=== PATIENT | female | born 1965 | race Hispanic/Latino ===

== ENCOUNTER → 2020-01-24 | Outpatient (CLI) | payer OTHER | END | disposition home or self-care (01) | LOC: OIH 10:34 | PROVIDERS: ATTEND Nurse Practitioner Adult Health | DX: Z13.6 Encounter for screening for cardiovascular disorders (principal) | CPT/HCPCS: 75571 ==

== ENCOUNTER 2022-12-10 13:26 | Observation (INO) | payer BC, OTHER ==
[~2022-12-10] VITALS: Ht 157.5 cm; Wt 95.9 kg
[2022-12-10 14:01] LABS: BASOPHILS # (AUTO) 0.07 K/uL (0.00-0.20); BASOPHILS % (AUTO) 0.8 % (0.0-5.0); EOSINOPHILS # (AUTO) 0.33 K/uL (0.00-0.70); HEMATOCRIT 40.2 % (36-48); IMMATURE GRANULOCYTE ABSOLUTE 0.03 K/uL (0-1); LYMPHOCYTES # (AUTO) 2.1 K/uL (1.0-4.8); LYMPHOCYTES % (AUTO) 25.1 % (21.0-51.0); MEAN CORPUSCULAR HEMOGLOBIN 30.5 pg (27.0-33.0); MEAN CORPUSCULAR HGB CONC 34.3 g/dL (32.0-36.0); MEAN CORPUSCULAR VOLUME 88.9 fL (79-99); MONOCYTES # (AUTO) 0.5 K/uL (0.1-1.0); MONOCYTES % (AUTO) 6.5 % (3.0-13.0); NEUTROPHILS # (AUTO) 5.2 K/uL (1.8-7.7); NEUTROPHILS % (AUTO) 63.2 % (40.0-77.0); PLATELET COUNT (AUTO) 312 K/uL (130-400); RED BLOOD CELL COUNT(AUTO) 4.52 MIL/uL (4.00-5.50); RED CELL DISTRIBUTION WIDTH 12.8 % (11.0-15.5); WHITE BLOOD COUNT (AUTO) 8.3 K/uL (4.8-10.8)
[2022-12-10 14:09] LABS: CREATININE 0.8 mg/dL (0.5-1.5); POTASSIUM 3.9 mmol/L (3.5-5.1)
[2022-12-10 14:12] LABS: INR < 0.93 (0.85-1.15); PROTHROMBIN TIME 10.8 SEC (9.6-11.6)
[2022-12-10 14:14] LABS: PARTIAL THROMBOPLASTIN TIME 27.6 SEC (26.3-35.5)
[2022-12-10 14:15] LABS: ALBUMIN 3.3 g/dL (3.5-5.0); BILIRUBIN,TOTAL 0.4 mg/dL (0.2-1.0); TOTAL PROTEIN, SERUM 7.7 g/dL (6.0-8.3)
[2022-12-10] MEDS ORDERED: KCL 20 MEQ ERTAB PO PRN (15:30)
[2022-12-10] MEDS ORDERED: HYDROCODONE/ACETAMINOPHEN 5/325 MG TAB PO PRN ×2 (15:30)
[2022-12-10] MEDS ORDERED: NITROGLYCERIN 0.4 MG SL TAB SL PRN (15:30)
[2022-12-10] MEDS ORDERED: POTASSIUM CHLORIDE 20MEQ/100ML 100 ML IV PRN (15:30)
[2022-12-10] MEDS ORDERED: LACTULOSE 20 GM/30 ML UDCUP PO PRN (15:30)
[2022-12-10] MEDS ORDERED: MAG/ALUM/SIMETH 30 ML UDCUP PO PRN (15:30)
[2022-12-10] MEDS ORDERED: GUAIFENESIN-DM 200/20 MG 10 ML PO PRN (15:30)
[2022-12-10] MEDS ORDERED: DiphenhydrAMINE HCL 50 MG/ML VIAL IV PRN (15:30)
[2022-12-10] MEDS ORDERED: HYDROMORPHONE 1 MG INJ IV PRN (15:30)
[2022-12-10] MEDS ORDERED: MAGNESIUM 2GM PREMIX 50ML 50 ML IV PRN (15:30)
[2022-12-10] MEDS ORDERED: ONDANSETRON 4MG INJ IV PRN (15:30)
[2022-12-10] MEDS ORDERED: POTASSIUM CHLORIDE 10% ELIXIR 20 MEQ/15 ML UDCUP PO PRN (15:30)
[2022-12-10] MEDS ORDERED: DIPHENHYDRAMINE HCL 25 MG CAPSULE PO PRN (15:30)
[2022-12-10] MEDS ORDERED: ACETAMINOPHEN 325 MG TAB PO PRN ×2 (15:30)
[2022-12-10] MEDS: ATORVASTATIN 40 MG TABLET PO SCH ×2 (16:25→19:26)
[2022-12-10] MEDS: ASPIRIN 81 MG EC TAB PO SCH (16:25)
[2022-12-10] MEDS: CLOPIDOGREL 75MG TAB PO SCH (16:25)
[2022-12-10] MEDS ORDERED: GADOTERATE MEGLUMINE 10 MMOL/20 ML VIAL IV ONE (16:30)
[2022-12-10] MEDS: 0.9%NACL 1000ML 1,000 ML IV SCH ×2 (18:32→23:50)
[2022-12-10] MEDS ORDERED: FAMOTIDINE 20MG TAB ONE (19:25)
[2022-12-10] MEDS: FAMOTIDINE 20MG VIAL IV SCH (19:26)
[2022-12-10] MEDS: FAMOTIDINE 20MG TAB PO SCH (19:26)
[2022-12-10 23:32] VITALS: O2SAT 97
[2022-12-10 23:45] VITALS: BP 116/70; PULSE 69; RESP 18
[2022-12-11] MEDS ORDERED: LISI10TA24 PO (00:24)
[2022-12-11] MEDS ORDERED: METF-910 PO (00:24)
[2022-12-11] MEDS ORDERED: SEMA1PEN3 SQ (00:24)
[2022-12-11 04:12] VITALS: BP 118/62; PULSE 79; RESP 18
[2022-12-11 05:14] LABS: BASOPHILS # (AUTO) 0.08 K/uL (0.00-0.20); EOSINOPHILS # (AUTO) 0.42 K/uL (0.00-0.70); EOSINOPHILS % (AUTO) 5.5 % (0.0-8.0); HEMATOCRIT 38.9 % (36-48); IMMATURE GRANULOCYTE ABSOLUTE 0.02 K/uL (0-1); LYMPHOCYTES # (AUTO) 1.9 K/uL (1.0-4.8); LYMPHOCYTES % (AUTO) 25.4 % (21.0-51.0); MEAN CORPUSCULAR HEMOGLOBIN 30.6 pg (27.0-33.0); MEAN CORPUSCULAR HGB CONC 34.2 g/dL (32.0-36.0); MEAN CORPUSCULAR VOLUME 89.4 fL (79-99); MONOCYTES # (AUTO) 0.6 K/uL (0.1-1.0); MONOCYTES % (AUTO) 8.4 % (3.0-13.0); NEUTROPHILS # (AUTO) 4.5 K/uL (1.8-7.7); NEUTROPHILS % (AUTO) 59.4 % (40.0-77.0); PLATELET COUNT (AUTO) 292 K/uL (130-400); RED BLOOD CELL COUNT(AUTO) 4.35 MIL/uL (4.00-5.50); RED CELL DISTRIBUTION WIDTH 12.8 % (11.0-15.5); WHITE BLOOD COUNT (AUTO) 7.6 K/uL (4.8-10.8)
[2022-12-11 05:26] LABS: INR < 0.93 (0.85-1.15); PROTHROMBIN TIME 10.7 SEC (9.6-11.6)
[2022-12-11 05:27] LABS: PARTIAL THROMBOPLASTIN TIME 27.4 SEC (26.3-35.5)
[2022-12-11 05:34] LABS: ALBUMIN 2.9 g/dL (3.5-5.0); BILIRUBIN,TOTAL 0.3 mg/dL (0.2-1.0); CREATININE 0.8 mg/dL (0.5-1.5); MAGNESIUM 1.9 mg/dL (1.80-2.40); PHOSPHORUS 4.6 mg/dL (2.5-4.9); POTASSIUM 3.7 mmol/L (3.5-5.1); THYROID STIMULATING HORMONE 2.65 uIU/mL (0.36-3.74); TOTAL PROTEIN, SERUM 6.9 g/dL (6.0-8.3)
[2022-12-11] MEDS: FAMOTIDINE 20MG VIAL IV SCH (07:53)
[2022-12-11 08:00] VITALS: BP 132/72; PULSE 82; RESP 18
[2022-12-11] MEDS ORDERED: BENZOCAINE/MENTH/CETYLPYRD CL 1 EACH LOZENGE MM PRN (08:30)
[2022-12-11 08:59] LABS: SARS-CoV-2, RNA, NAAT NEGATIVE SARS CoV-2 (NEGATIVE)
[2022-12-11] MEDS ORDERED: ENOXAPARIN SODIUM 30 MG/0.3 ML SQ SCH (09:00)
[2022-12-11] MEDS: FAMOTIDINE 20MG TAB PO SCH (09:57)
[2022-12-11] MEDS: ASPIRIN 81 MG EC TAB PO SCH (09:57)
[2022-12-11] MEDS: CLOPIDOGREL 75MG TAB PO SCH (09:57)
[2022-12-11] MEDS ORDERED: AEC81 PO (10:12)
[2022-12-11] MEDS ORDERED: ATOR40TA69 PO (10:12)
[2022-12-11] MEDS ORDERED: CLOP-31 PO (10:12)
[2022-12-11 11:51] VITALS: BP 124/76; PULSE 78; RESP 18
== END 2022-12-11 14:00 | disposition home or self-care (01) ==
LOC: EDH 13:26 → EDHIP 15:27 → INTOOBSV 15:27 → 3DH 23:36
PROVIDERS: ADMIT Internal Medicine; ATTEND Internal Medicine
DX: G45.9 Transient cerebral ischemic attack, unspecified (principal); Z20.822 Contact with and (suspected) exposure to COVID-19; E11.9 Type 2 diabetes mellitus without complications; I10 Essential (primary) hypertension; E78.5 Hyperlipidemia, unspecified; R29.700 NIHSS score 0; Z87.891 Personal history of nicotine dependence; Z79.899 Other long term (current) drug therapy
CPT/HCPCS: 70551; 99285; 96360; 96361 ×2; 92522; 70450; 92610; 84484; 80053; 85025; 85610 ×2; 85730 ×2; 36415 ×2; 70549; 93005; 70544; 93306; 95819; 87635; 96372; 83540; 83550; 83735; 84100; 93356; 80050; A9575; G0378; J1650; 84443